=== PATIENT | male | born 1970 ===

== ENCOUNTER 2017-07-31 07:05 | Day surgery (SDC) | payer OTHER ==
[~2017-07-31] VITALS: Ht 180.3 cm; Wt 104.3 kg
[2017-07-31] MEDS ORDERED: PERCOCET 5-3251 EACH PO (16:44)
[2017-07-31] MEDS ORDERED: RECTICARE30 GM TOP (16:44)
== END 2017-07-31 18:00 | disposition home or self-care (01) ==
LOC: ER 07:05 → SEC-K 12:28 → ER 12:28 → SEC-K 14:34 → O/R 14:34 → CIR.AMB 15:00
DX: K64.4 Residual hemorrhoidal skin tags (principal); K60.3 Anal fistula